=== PATIENT | male | born 1950 | race Caucasian/White ===

== ENCOUNTER 2022-01-25 14:58 | Inpatient (IN) | payer BC, MEDICARE ==
[~2022-01-25] VITALS: Ht 182.9 cm; Wt 103.0 kg
[2022-01-25] MEDS ORDERED: methylPREDNISolone sod succ 125mg/2ml vial IV ONE (15:05)
[2022-01-25] MEDS: albuterol 2.5 MG/3 ML nebule CONTNEB PRN ×2 (15:24→15:26)
[2022-01-25 15:28] LABS: BASOPHILS % (AUTO) 0.4 % (0-1); EOSINOPHILS % (AUTO) 0.4 % (0-6); HEMATOCRIT 38.3 % (42.0-52.0); HEMOGLOBIN 12.9 g/dl (14.0-17.9); LYMPHOCYTES # (AUTO) 0.4 X10'3 (1.1-4.8); LYMPHOCYTES % (AUTO) 4.2 % (21-51); MEAN CORPUSCULAR HEMOGLOBIN 31.9 PG (27.0-31.0); MEAN CORPUSCULAR HGB CONC 33.5 g/dL (33.0-36.5); MEAN CORPUSCULAR VOLUME 95.1 FL (78-98); MEAN PLATELET VOLUME 7.7 FL (7.4-10.4); MONOCYTES # (AUTO) 0.7 X10'3 (0-0.9); MONOCYTES % (AUTO) 8.1 % (2-12); NEUTROPHILS # (AUTO) 7.4 X10'3 (1.8-7.7); NEUTROPHILS % (AUTO) 86.9 % (42-75); PLATELET COUNT 226 X10'3 (140-440); RED BLOOD COUNT 4.03 X10'6 (4.70-6.10); RED CELL DISTRIBUTION WIDTH 14.5 % (11.5-14.5); WHITE BLOOD COUNT 8.5 X10'3 (4.5-11.0)
[2022-01-25 15:50] LABS: ALANINE AMINOTRANSFERASE 29 U/L (12-78); ALBUMIN 3.6 G/DL (3.4-5.0); ALKALINE PHOSPHATASE 109 IU/L (46-116); ANION GAP 12 (8-16); ASPARTATE AMINO TRANSFERASE 24 U/L (10-37); BILIRUBIN,TOTAL 0.6 MG/DL (0.1-1.0); BLOOD UREA NITROGEN 22 MG/DL (7-18); BUN/CREATININE RATIO 17.2 (5.4-32.0); CALCIUM 9.1 MG/DL (8.5-10.1); CHLORIDE 96 MMOL/L (99-107); CREATININE 1.28 MG/DL (0.60-1.10); GLUCOSE 130 MG/DL (70-104); POTASSIUM 3.6 MMOL/L (3.5-5.1); SODIUM 132 MMOL/L (135-145); TOTAL CARBON DIOXIDE 24.2 MMOL/L (24-32); TOTAL PROTEIN 7.2 G/DL (6.4-8.2); eGFR 55 ML/MIN
[2022-01-25] MEDS ORDERED: furosemide 10 MG/1 ML 10ml inj IV ONE (17:25)
[2022-01-25 17:28] LABS: ABG HCO3 23.7 mmol/L (22.0-26.0); ABG OXYGEN SATURATION 96.2 % (94-97); ABG PCO2 (T) 35.5 mmHg (35.0-48.0); ABG PO2 (T) 83.4 mmHg (75.0-100.0); ALLEN'S TEST POSITIVE; FCOHb 0.6 % (0.0-3.9); FMetHb 0.3 % (0.0-1.5); FO2Hb 95.3 % (94-97); RESPIRATORY RATE 12 b/min; TOTAL HEMOGLOBIN 13.4 G/dl (14.0-18.0)
[2022-01-25] MEDS ORDERED: potassium Cl 20 mEq SR tablet PO PRN (17:30)
[2022-01-25] MEDS ORDERED: furosemide 20 MG/2 ML vial IV ONE (17:30)
[2022-01-25] MEDS ORDERED: magnesium 4gm in 100ml NS 100 ML IV PRN (17:30)
[2022-01-25] MEDS ORDERED: ondansetron/PF 4mg/2ml inj IV PRN (17:30)
[2022-01-25] MEDS ORDERED: normal saline 1000ml 1,000 ML IV SCH (17:30)
[2022-01-25] MEDS ORDERED: magnesium Cl slow-release 64mg tablet PO PRN (17:30)
[2022-01-25] MEDS ORDERED: magnesium hydroxide 30ml (MOM) UD suspension PO PRN (17:30)
[2022-01-25] MEDS ORDERED: potassium CL 10mEq/100ml bag 100 ML IV PRN (17:30)
[2022-01-25] MEDS ORDERED: mag hydrox/Alum hydrox/simeth 30ml oral suspension PO PRN (17:30)
[2022-01-25] MEDS ORDERED: magnesium 2GM in 50ml NS 50 ML IV PRN (17:30)
[2022-01-25] MEDS ORDERED: acetaminophen 325mg tablet PO PRN (17:30)
[2022-01-25] MEDS ORDERED: iohexol 350MG/ML 100ml bottle IV ONE (18:02)
[2022-01-25] MEDS: cefTRIAXone 1g/NS 100ml IVPB 100 ML IV SCH (18:09)
--- NOTE | 2022-01-25 18:12 | NUR ---
PER DR. BROWN REMOVE BIPAP 30 MINUTES AFTER LASIX ADMIN. BIPAP REMOVED, PT MAINTAING WTIH 4L NC.
[2022-01-25] MEDS ORDERED: LISI40TA13 PO (18:48)
[2022-01-25] MEDS ORDERED: FLUT1BLS13 INH (18:48)
[2022-01-25] MEDS ORDERED: FAMO40TA58 PO (18:48)
[2022-01-25] MEDS ORDERED: ALBU8.5H17 IH (18:48)
[2022-01-25] MEDS ORDERED: ATOR-2 PO (18:48)
[2022-01-25] MEDS ORDERED: HYDR25TA4 PO (18:48)
[2022-01-25] MEDS ORDERED: TIOT18CA3 INH (18:48)
[2022-01-25] MEDS ORDERED: LIDO700A47 TOP (18:48)
[2022-01-25] MEDS ORDERED: FLO0.4C PO (18:48)
[2022-01-25] MEDS ORDERED: METO200T49 PO (18:48)
[2022-01-25] MEDS ORDERED: AMLO10TA13 PO (18:48)
[2022-01-25 18:52] LABS: POTASSIUM 3.5 MMOL/L (3.5-5.1)
[2022-01-25] MEDS: ipratropium/albuterol 3ml nebule NEB SCH ×2 (19:12→23:10)
[2022-01-25] MEDS: enoxaparin 30mg/0.3ml syringe SQ SCH (20:00)
[2022-01-25] MEDS: K and/or MAG REPLACEMENT MC SCH (20:00)
[2022-01-25] MEDS: docusate sod 100mg capsule PO SCH (21:58)
[2022-01-25 22:00] VITALS: BP 177/63
[2022-01-25] MEDS: methylPREDNISolone sod succ 125mg/2ml vial IV SCH (22:10)
[2022-01-26] VITALS (8 sets, daily range): BP systolic 144–166; BP diastolic 53–64
[2022-01-26] MEDS: ipratropium/albuterol 3ml nebule NEB SCH ×2 (03:05→07:12)
[2022-01-26 06:26] LABS: BASOPHILS % (AUTO) 0.1 % (0-1); EOSINOPHILS % (AUTO) 0 % (0-6); HEMATOCRIT 37.5 % (42.0-52.0); HEMOGLOBIN 12.8 g/dl (14.0-17.9); LYMPHOCYTES # (AUTO) 0.1 X10'3 (1.1-4.8); MEAN CORPUSCULAR HEMOGLOBIN 32.4 PG (27.0-31.0); MEAN CORPUSCULAR HGB CONC 34.1 g/dL (33.0-36.5); MEAN CORPUSCULAR VOLUME 95.2 FL (78-98); MONOCYTES # (AUTO) 0.1 X10'3 (0-0.9); MONOCYTES % (AUTO) 1.1 % (2-12); NEUTROPHILS # (AUTO) 5.2 X10'3 (1.8-7.7); NEUTROPHILS % (AUTO) 96.8 % (42-75); PLATELET COUNT 232 X10'3 (140-440); RED BLOOD COUNT 3.94 X10'6 (4.70-6.10); RED CELL DISTRIBUTION WIDTH 14.4 % (11.5-14.5); WHITE BLOOD COUNT 5.4 X10'3 (4.5-11.0)
[2022-01-26 06:27] LABS: ALBUMIN 3.4 G/DL (3.4-5.0); ANION GAP 13 (8-16); BLOOD UREA NITROGEN 25 MG/DL (7-18); BUN/CREATININE RATIO 17.9 (5.4-32.0); CALCIUM 9.1 MG/DL (8.5-10.1); CHLORIDE 95 MMOL/L (99-107); GLUCOSE 171 MG/DL (70-104); SODIUM 134 MMOL/L (135-145); TOTAL CARBON DIOXIDE 25.6 MMOL/L (24-32); eGFR 50 ML/MIN
[2022-01-26 06:36] LABS: POTASSIUM 2.8 MMOL/L (3.5-5.1)
[2022-01-26] MEDS: cefTRIAXone 1g/NS 100ml IVPB 100 ML IV SCH (07:14)
[2022-01-26] MEDS: furosemide 40mg/4ml inj IV SCH (07:15)
[2022-01-26] MEDS: methylPREDNISolone sod succ 125mg/2ml vial IV SCH ×2 (07:16→19:31)
[2022-01-26] MEDS: docusate sod 100mg capsule PO SCH ×2 (07:16→19:30)
[2022-01-26] MEDS: enoxaparin 30mg/0.3ml syringe SQ SCH ×2 (07:17→19:31)
[2022-01-26] MEDS: potassium Cl 20 mEq SR tablet PO PRN ×3 (08:11→16:23)
[2022-01-26] MEDS: K and/or MAG REPLACEMENT MC SCH ×2 (08:30→19:10)
[2022-01-26] MEDS ORDERED: metoprolol succinate 25mg (24-HOUR) SR. Tablet PO ONE (11:15)
[2022-01-26] MEDS ORDERED: lisinopril 20mg tablet PO ONE (11:15)
[2022-01-26] MEDS: metoprolol succinate 25mg (24-HOUR) SR. Tablet PO SCH (11:20)
[2022-01-26] MEDS ORDERED: ipratropium/albuterol 3ml nebule IH SCH (11:25)
[2022-01-26] MEDS ORDERED: albuterol 2.5 MG/3 ML nebule NEB PRN (11:25)
[2022-01-26] MEDS: atorvastatin 20mg tablet PO SCH (12:31)
[2022-01-26] MEDS: lisinopril 20mg tablet PO SCH (12:32)
[2022-01-26 13:05] LABS: BFSOURCE PLEURAL FLD
[2022-01-26 13:32] LABS: GLUCOSE,BODY FLUID 188 MG/DL; LDH,BODY FLUID 66 U/L
[2022-01-26 13:43] LABS: BFAPPEAR HAZY
[2022-01-26 13:44] LABS: BF RBC COUNT 6250 /CU MM; BF WBC COUNT 400 /CU MM (0-1000); BFCOLOR YELLOW; BFVOLUME 63 ML; EOSINOPHILS,BODY FLUID 1 %; LYMPHOCYTES,BODY FLUID 68 %; MONOCYTES,BODY FLUID 11 %; NEUTROPHILS,BODY FLUID 20 %
[2022-01-26] MEDS: ipratropium/albuterol 3ml nebule IH SCH ×2 (15:20→20:03)
[2022-01-26] MEDS: tamsulosin 0.4mg capsule PO SCH (19:30)
[2022-01-26] MEDS: amLODIPine 5mg tablet PO SCH (19:30)
[2022-01-26] MEDS: famotidine 20mg tablet PO SCH (19:31)
[2022-01-26] MEDS: budesonide 0.5mg/2ml UD nebule IH SCH (20:03)
[2022-01-27 02:45] VITALS: BP 171/67
[2022-01-27] MEDS: ipratropium/albuterol 3ml nebule IH SCH ×2 (03:00→08:26)
[2022-01-27] MEDS ORDERED: hydrALAZINE 20mg/ml inj. IV PRN (03:15)
[2022-01-27 03:52] VITALS: BP 166/61
[2022-01-27 05:50] LABS: BASOPHILS % (AUTO) 0.1 % (0-1); EOSINOPHILS % (AUTO) 0 % (0-6); HEMATOCRIT 36.3 % (42.0-52.0); HEMOGLOBIN 12.3 g/dl (14.0-17.9); LYMPHOCYTES # (AUTO) 0.1 X10'3 (1.1-4.8); LYMPHOCYTES % (AUTO) 1.3 % (21-51); MEAN CORPUSCULAR HEMOGLOBIN 32.5 PG (27.0-31.0); MEAN CORPUSCULAR HGB CONC 33.8 g/dL (33.0-36.5); MEAN CORPUSCULAR VOLUME 95.9 FL (78-98); MEAN PLATELET VOLUME 7.8 FL (7.4-10.4); MONOCYTES # (AUTO) 0.5 X10'3 (0-0.9); MONOCYTES % (AUTO) 5.1 % (2-12); NEUTROPHILS # (AUTO) 9.4 X10'3 (1.8-7.7); NEUTROPHILS % (AUTO) 93.5 % (42-75); PLATELET COUNT 225 X10'3 (140-440); RED BLOOD COUNT 3.78 X10'6 (4.70-6.10); RED CELL DISTRIBUTION WIDTH 14.7 % (11.5-14.5)
[2022-01-27 06:00] VITALS: BP 163/62
[2022-01-27 06:05] LABS: ALBUMIN 3.4 G/DL (3.4-5.0); ANION GAP 10 (8-16); BLOOD UREA NITROGEN 37 MG/DL (7-18); BUN/CREATININE RATIO 24.7 (5.4-32.0); CALCIUM 8.7 MG/DL (8.5-10.1); CHLORIDE 104 MMOL/L (99-107); GLUCOSE 159 MG/DL (70-104); POTASSIUM 3.8 MMOL/L (3.5-5.1); SODIUM 140 MMOL/L (135-145); TOTAL CARBON DIOXIDE 26.4 MMOL/L (24-32); eGFR 46 ML/MIN
[2022-01-27] MEDS: cefTRIAXone 1g/NS 100ml IVPB 100 ML IV SCH (07:29)
[2022-01-27] MEDS: docusate sod 100mg capsule PO SCH (07:30)
[2022-01-27] MEDS: furosemide 40mg/4ml inj IV SCH (07:30)
[2022-01-27] MEDS: methylPREDNISolone sod succ 125mg/2ml vial IV SCH (07:30)
[2022-01-27] MEDS: metoprolol succinate 25mg (24-HOUR) SR. Tablet PO SCH (07:31)
[2022-01-27] MEDS: atorvastatin 20mg tablet PO SCH (07:31)
[2022-01-27] MEDS: lisinopril 20mg tablet PO SCH (07:33)
[2022-01-27] MEDS: amLODIPine 5mg tablet PO SCH (07:33)
[2022-01-27] MEDS: famotidine 20mg tablet PO SCH (07:34)
[2022-01-27] MEDS: tamsulosin 0.4mg capsule PO SCH (07:35)
[2022-01-27] MEDS: enoxaparin 30mg/0.3ml syringe SQ SCH (08:00)
[2022-01-27] MEDS ORDERED: LIDOcaine 5% patch TP SCH (08:00)
[2022-01-27] MEDS ORDERED: HYDROchlorothiazide 25mg tablet PO SCH (08:00)
[2022-01-27] MEDS: K and/or MAG REPLACEMENT MC SCH (08:00)
[2022-01-27] MEDS: budesonide 0.5mg/2ml UD nebule IH SCH (08:26)
[2022-01-27 11:00] VITALS: BP 153/53
[2022-01-27] MEDS ORDERED: PRED20TA PO (11:15)
[2022-01-27] MEDS ORDERED: LEVO750T46 PO (11:15)
--- NOTE | 2022-01-27 14:21 | NUR ---
Discharge instructions discussed with patient. All questions answered. Pt states he understands. Discontinued both IV's. Pt will leave unit via wheelchair.
[2022-01-28] MEDS ORDERED: famotidine 20mg tablet PO SCH (08:00)
== END 2022-01-27 14:48 | disposition home or self-care (01) | DRG 193 ==
LOC: ER 14:59 → ED HOLD 17:31 → PCU 3S 20:40
PROVIDERS: ADMIT Family Medicine; ATTEND Family Medicine
PROC: 5A09357 Assistance with Respiratory Ventilation, Less than 24 Consecutive Hours, Continuous Positive Airway Pressure (ICD-10-PCS; 2022-01-25)
PROC: B32T1ZZ Computerized Tomography (CT Scan) of Left Pulmonary Artery using Low Osmolar Contrast (ICD-10-PCS; 2022-01-25)
PROC: B3201ZZ Computerized Tomography (CT Scan) of Thoracic Aorta using Low Osmolar Contrast (ICD-10-PCS; 2022-01-25)
PROC: B32S1ZZ Computerized Tomography (CT Scan) of Right Pulmonary Artery using Low Osmolar Contrast (ICD-10-PCS; 2022-01-25)
PROC: 0W993ZX Drainage of Right Pleural Cavity, Percutaneous Approach, Diagnostic (ICD-10-PCS; principal; 2022-01-26)
PROC: 5A09357 Assistance with Respiratory Ventilation, Less than 24 Consecutive Hours, Continuous Positive Airway Pressure (ICD-10-PCS; 2022-01-26)
DX: J18.9 Pneumonia, unspecified organism (principal); J96.01 Acute respiratory failure with hypoxia; I50.31 Acute diastolic (congestive) heart failure; J44.1 Chronic obstructive pulmonary disease with (acute) exacerbation; J44.0 Chronic obstructive pulmonary disease with (acute) lower respiratory infection; I11.0 Hypertensive heart disease with heart failure; Z20.822 Contact with and (suspected) exposure to COVID-19; G47.30 Sleep apnea, unspecified; R23.0 Cyanosis; Z85.46 Personal history of malignant neoplasm of prostate; Z85.51 Personal history of malignant neoplasm of bladder; Z87.891 Personal history of nicotine dependence; Z92.3 Personal history of irradiation; E87.6 Hypokalemia
CPT/HCPCS: 32555; 36415; 36600; 71045; 71275; 80048; 80053; 82803; 82945; 83615; 83735; 83880; 83986; 84132; 84157; 84484; 85018; 85025; 87070; 87081; 87635; 89051; 93005; 93306; 94640; 94660; 94760; 99285; A7015; G0378; J0696; J1650; J1940; J2930; J7030; Q9967

== ENCOUNTER 2024-11-12 08:37 | Outpatient (CLI) | payer MEDICARE ==
[2024-11-11 12:15] LABS: ALANINE AMINOTRANSFERASE 28 U/L (12-78); ALBUMIN 3.6 G/DL (3.4-5.0); ALBUMIN/GLOBULIN RATIO 0.9 (1.1-1.5); ALKALINE PHOSPHATASE 72 IU/L (46-116); ANION GAP 7 (8-16); ASPARTATE AMINO TRANSFERASE 25 U/L (10-37); BILIRUBIN,TOTAL 0.4 MG/DL (0.1-1.0); BLOOD UREA NITROGEN 30 MG/DL (7-18); CHLORIDE 99 MMOL/L (99-107); CREATININE 1.58 MG/DL (0.60-1.10); GLUCOSE 98 MG/DL (70-104); POTASSIUM 3.8 MMOL/L (3.5-5.1); SODIUM 135 MMOL/L (135-145); TOTAL CARBON DIOXIDE 29.5 MMOL/L (24-32); TOTAL PROTEIN 7.7 G/DL (6.4-8.2); eGFR 43 ML/MIN
[~2024-11-12 08:37] MED LIST: ALBU8.5H17 IH; AMLO10TA13 PO; ATOR-2 PO; FAMO40TA58 PO; FLO0.4C PO; FLUT1BLS13 INH; HYDR25TA4 PO; LIDO700A47 TOP; LISI40TA13 PO; METO200T37 PO; TIOT18CA3 INH
== END 2024-11-12 23:59 | disposition home or self-care (01) ==
LOC: MRI 08:37
PROVIDERS: ATTEND Registered Nurse
DX: R90.82 White matter disease, unspecified (principal); R51.9 Headache, unspecified; R53.83 Other fatigue
CPT/HCPCS: 36415; 70551; 80053

== ENCOUNTER 2025-06-27 08:43 | Day surgery (SDC) | payer MEDICARE ==
[~2025-06-27] VITALS: Ht 182.9 cm; Wt 96.0 kg
[~2025-06-27 08:43] MED LIST changes: +ALBU18HF2 INH; -ALBU8.5H17 IH; +AMLO-823 PO; -AMLO10TA13 PO; +APIX5TAB3 PO; -ATOR-2 PO; +CARV-50 PO; +CHLO25TA11 PO; +CLON0.1T2 PO; -FLO0.4C PO; -FLUT1BLS13 INH; +FLUT1BLS4 INH; -HYDR25TA4 PO; -LIDO700A47 TOP; -LISI40TA13 PO; +LISI40TA20 PO; +MAGN250C PO; -METO200T37 PO; +POTA99CA PO; +ROSU40TA89 PO; -TIOT18CA3 INH
[2025-06-27] MEDS ORDERED: midazolam 1 mg/ML 2ml injection ONE ×2 (08:47→10:05)
[2025-06-27] MEDS ORDERED: amiodarone 50MG/ML inj IV ONE (08:47)
[2025-06-27] MEDS ORDERED: fentaNYL/PF 50MCG/1 ML 2ML syringe ONE (08:47)
[2025-06-27] MEDS ORDERED: atropine 0.1mg/ml 10ml syringe ONE (08:47)
[2025-06-27 09:00] VITALS: BP 169/75; PULSE 59; RESP 16; TEMP 97.5; O2SAT 98
--- NOTE | 2025-06-27 09:15 | ELECTROCARDIOGRAPH REPORT ---
[facility] Test Date: 2025-06-27 Test Time: 09:12:59 Pat Name: MARIA ELENA VELA Department: [facility] Patient ID: [facility]-[id number] Room: Gender: M Agency Service Coordinator: REBECCA : 1950 Requested By: YAMINI JADE Order Number: [id number] Reading MD: Dr. DAPHNIE Estes Measurements Intervals [place] Rate: 54 P: 0 FL: 0 QRS: -43 QRSD: 129 T: 76 QT: 506 QTc: 480 Interpretive Statements Atrial fibrillation Left bundle branch block Electronically Signed On 06-27-2025 17:03:[address] DAPHNIE Estes Please click the below link to view image of tracing.
[2025-06-27] MEDS ORDERED: AMIO200T76 PO (09:21)
[2025-06-27] MEDS ORDERED: normal saline 1000ml 1,000 ML IV SCH (09:30)
[2025-06-27] MEDS ORDERED: fentaNYL/PF 50MCG/1 ML 2ML syringe IV ONE (09:30)
[2025-06-27] MEDS ORDERED: MIDAZolam 1mg/ml 10ml vial IV ONE (09:30)
[2025-06-27 09:44] LABS: MEAN PLATELET VOLUME 8.1 FL (7.4-10.4); RED CELL DISTRIBUTION WIDTH 16.7 % (11.5-14.5)
[2025-06-27 09:53] LABS: INR 1.2 INR
--- NOTE | 2025-06-27 10:22 | CARDIOLOGY REPORT ---
DATE OF SERVICE: 06/27/2025 DICTATING PHYSICIAN: YAMINI JADE DO REFERRING PHYSICIAN: Shannan Thomson M.D. PROCEDURE: DC cardioversion. PREPROCEDURAL DIAGNOSIS: Atrial fibrillation. POSTPROCEDURAL DIAGNOSIS: Atrial fibrillation, cardioverted to sinus rhythm. DESCRIPTION OF PROCEDURE: The patient was sedated with fentanyl and Versed. He was then given one 200 joule synchronized shock resulting in reversion to sinus rhythm. COMPLICATIONS: There were no complications. PLAN: Ongoing medical therapy. FINAL DIAGNOSIS: Atrial fibrillation, cardioverted to sinus rhythm. YAMINI JADE DO TID: [id number] RECEIPT: [id number]
[2025-06-27 10:34] VITALS: BP 142/63; PULSE 60; RESP 17; O2SAT 93
--- NOTE | 2025-06-27 10:35 | ELECTROCARDIOGRAPH REPORT ---
[facility] [place] Test Date: 2025-06-27 Test Time: 10:34:06 Pat Name: MARIA ELENA VELA Department: SHORT STAY 1ST FLOOR Room: Gender: M Marketing Recruiter: mikaela : 1950 Requested By: YAMINI JADE Order Number: [id number] Reading MD: Dr. DAPHNIE Estes Measurements Intervals [place] Rate: 59 P: 72 OK: 354 QRS: -39 QRSD: 141 T: 86 QT: 496 QTc: 492 Interpretive Statements Sinus rhythm Prolonged OK interval Left bundle branch block Electronically Signed On 06-27-2025 17:03:[address] DAPHNIE Estes Please click the below link to view image of tracing.
[2025-06-27 10:45] VITALS: BP 156/65; PULSE 55; RESP 17; O2SAT 93
[2025-06-27 10:55] VITALS: BP 145/63; PULSE 59; RESP 16; O2SAT 93
[2025-06-27 11:07] LABS: CREATININE 1.88 MG/DL (0.60-1.10); TOTAL CARBON DIOXIDE 26.9 MMOL/L (24-32); eCRCL 37 ML/MIN; eGFR 35 ML/MIN
== END 2025-06-27 11:00 | disposition home or self-care (01) ==
LOC: SSTAY O 08:43
PROVIDERS: ATTEND Internal Medicine Cardiovascular Disease
DX: I48.19 Other persistent atrial fibrillation (principal); I44.7 Left bundle-branch block, unspecified; I10 Essential (primary) hypertension; I25.118 Atherosclerotic heart disease of native coronary artery with other forms of angina pectoris; J44.9 Chronic obstructive pulmonary disease, unspecified; E78.5 Hyperlipidemia, unspecified; I73.9 Peripheral vascular disease, unspecified; Z79.01 Long term (current) use of anticoagulants; Z79.899 Other long term (current) drug therapy; Z95.818 Presence of other cardiac implants and grafts; Z88.5 Allergy status to narcotic agent; Z88.8 Allergy status to other drugs, medicaments and biological substances
CPT/HCPCS: 36415; 80053; 83874; 85025; 85610; 92960; 93005; J2250; J3010; J7030; Z7610; 99152; J0282; J0461